=== PATIENT | male | born 1970 | race Caucasian/White ===

== ENCOUNTER 2024-04-03 20:05 | Emergency (ER) | payer MEDICAID ==
[2024-04-03] MEDS ORDERED: Eye-Stream Solution ONE (20:22)
[2024-04-03] MEDS ORDERED: Fluor-I-Strip/Ful-Flo OP ONE (20:22)
[2024-04-03] MEDS ORDERED: TETRACAINE 0.5% STERI-UNIT SOL OP ONE (20:22)
[2024-04-03] MEDS: Fluor-I-Strip/Ful-Flo OP ONE (20:32)
[2024-04-03] MEDS: Eye-Stream Solution OP ONE (20:32)
[2024-04-03] MEDS: TETRACAINE 0.5% STERI-UNIT SOL OP STA (20:32)
[2024-04-03 20:40] VITALS: RESP 20; TEMP 98.3; O2SAT 99
--- NOTE | 2024-04-03 20:52 | ERPHSYRPT ---
- History of Present Illness Time Seen by Provider: 04/03/24 20:17 Source: patient Exam Limitations: no limitations Patient Subjective Stated Complaint: pt states that he was weed eating and a rock hit his eye Triage Nursing Assessment: pt ambulated into the er; pt is axo x4; c/o left eye injury; pt states 1/10 pain to left eye; redness present to left outer sclera; no discharge present; skin PDW; no respiratory distress present; tachycardic Physician History: 53-year-old presented in the ER after a rock flew into his left eye while lawnmowing almost an hour prior to arrival. Patient reports dull aching sensation 1/10 to the lateral side of the eye with some redness. Has baseline difficulty vision without glasses and is not any worse than usual. Denies any watering of eye. Denies any foreign body sensation. Unsure about tetanus status. Denies photophobia. Allergies/Adverse Reactions: No Known Drug Allergies Allergy (Unverified 04/03/24 20:12) Home Medications: No Reportable Medications [No Reported Medications] 04/03/24 [History] Hx Tetanus, Diphtheria Vaccination/Date Given: No Hx Influenza Vaccination/Date Given: No Hx Pneumococcal Vaccination/Date Given: No Travel Risk - International Travel Have you traveled outside of the country in past 3 weeks: No - Emerging Infectious Disease Are you exhibiting symptoms associated with any current EIDs: No - Review of Systems Constitutional: No Symptoms Eyes: Eye Pain, Eye Redness Ears, Nose, & Throat: No Symptoms Respiratory: No Symptoms Cardiac: No Symptoms Musculoskeletal: No Symptoms Skin: No Symptoms Neurological: No Symptoms Hematologic/Lymphatic: No Symptoms - Past Medical History Pertinent Past Medical History: Yes History: Renal Disease - Past Surgical History Past Surgical History: No - Social History Smoking Status: Current every day smoker Exposure to second hand smoke: Yes Drug Use: marijuana - Social Determinants of Health Will the patient participate in the screening: Yes Do you worry about a steady place to live?: No Do you have any problems with any of the following?: No known problems In the past 12 months,have you had to go without utilities?: No Transportation Issues: No Has anyone in your support network made you feel unsafe?: No Have you or anyone in your house had to go without enough: No - Nursing Vital Signs Nursing Vital Signs: Initial Vital Signs Temperature 98.3 F 04/03/24 20:13 Pulse Rate 109 H 04/03/24 20:13 Respiratory Rate 20 04/03/24 20:13 Blood Pressure 129/95 04/03/24 20:13 O2 Sat by Pulse Oximetry 99 04/03/24 20:13 Pain Scale Pain Intensity 1 - Physical Exam General Appearance: no apparent distress, alert Vision Acuity Degree Evaluation Phase: Uncorrected Vision Acuity Right Eye: 20/70 Vision Acuity Left Eye: 20/70 Eye Exam: right eye: normal inspection, PERRL, EOMI, abnormal EOM, left eye: conjunctival hemorrhage, conjunctival inflammation Ears, Nose, Throat Exam: normal ENT inspection, TMs normal, pharynx normal, moist mucous membranes Neck Exam: normal inspection, non-tender, supple, full range of motion Respiratory Exam: normal breath sounds, lungs clear Cardiovascular Exam: regular rate/rhythm, normal heart sounds Neurologic: alert, cooperative, detacher II-XII nml as tested Skin Exam: normal color SpO2 Interpretation: normal SpO2: 99 O2 Delivery: Room Air Ordered Tests: Medication Summary Generic Name Dose Route Start Last Admin Trade Name Freq PRN Reason Stop Dose Admin Ofloxacin 5 ml 04/03/24 20:45 Ofloxacin 0.3% Opth 5 Ml Eye Drops OP 05/03/24 20:44 Q6H MARINA Discontinued Medications Generic Name Dose Route Start Last Admin Trade Name Freq PRN Reason Stop Dose Admin Diphtheria/Tetanus/Acell Pertussis 0.5 ml 04/03/24 20:52 Tdap --Diph,Pertuss(Acell),Tet Vac/Pf 0.5 Ml Vial IM 04/03/24 20:53 .ONCE ONE Eye Irrigation Solution Confirm 04/03/24 20:22 Sodium/Potassium/Nick/Magnesium 30 Ml Eye Wash Administered 04/03/24 20:23 Dose 30 ml .ROUTE .STK-MED ONE Eye Irrigation Solution 15 ml 04/03/24 20:30 04/03/24 20:32 Sodium/Potassium/Nick/Magnesium 30 Ml Eye Wash OP 04/03/24 20:31 15 ml STAT ONE Administration Fluorescein Sodium Confirm 04/03/24 20:22 Fluorescein Sodium 1 Mg/Strip Strip Administered 04/03/24 20:23 Dose 1 mg OP .STK-MED ONE Fluorescein Sodium 1 mg 04/03/24 20:30 04/03/24 20:32 Fluorescein Sodium 1 Mg/Strip Strip OP 04/03/24 20:31 1 mg STAT ONE Administration Tetracaine HCl Confirm 04/03/24 20:22 Tetracaine Hcl/Pf 4 Ml Bottle Administered 04/03/24 20:23 Dose 4 ml OP .STK-MED ONE Tetracaine HCl 4 ml 04/03/24 20:30 04/03/24 20:32 Tetracaine Hcl/Pf 4 Ml Bottle OP 04/03/24 20:31 4 ml STAT STA Administration - Progress Progress: improved Progress Note: 04/03/24 20:55 53-year-old is evaluated for left eye injury with small piece of rock while doing lawnmowing. No visual disturbance than usual. I did not see any foreign body. I have given him tetracaine drops, everted the lids with no foreign body. No obvious corneal abrasion noticed with fluorescein stain and Gallardo lamp exam. Has subconjunctival hemorrhage on the lateral side. Intact range of motion. Started on ofloxacin eyedrops and outpatient ophthalmology follow-up recommended. Tetanus is updated. Counseled pt/family regarding: diagnosis, need for follow-up Medical Desision Making - Independent Historian Additional History obtained from: Spouse - Diagnostic Testing Diagnostic test were ordered, analyzed, and reviewed by me: No - Risk of complications The pt has a mod risk of morbidity or mortality based on: Need for prescription drug management - Departure Departure Disposition: Home Clinical Impression: Subconjunctival hemorrhage, Superficial injury of eyeball Condition: Stable Critical Care Time: No Referrals: DOCTOR,NO FAMILY [Primary Care Provider] - Follow up/PCP as directed Additional Instructions: Follow-up with ophthalmology/optometry for reevaluation in the morning. Use eyedrops given to use 1 to 2 drops every 6 hours for next 5 to 7 days. Return to ER for worsening of vision, redness, difficulty movements of eyeball/pain etc. Call for appointment [facility] [address] [id number]
[2024-04-03] MEDS ORDERED: Adacel Vial IM ONE (20:55)
[2024-04-03] MEDS ORDERED: Ocuflox OPHTHALMIC 5 ML OP ONE (20:55)
[2024-04-03] MEDS: Ocuflox OPHTHALMIC 5 ML OP SCH (20:56)
[2024-04-03] MEDS: Adacel Vial IM ONE (20:58)
[2024-04-03 21:04] VITALS: BP 122/93; PULSE 93
== END 2024-04-03 21:04 | disposition home or self-care (01) ==
LOC: ED 20:05
DX: H11.32 Conjunctival hemorrhage, left eye (principal); S05.8X2A Other injuries of left eye and orbit, initial encounter; W20.8XXA Other cause of strike by thrown, projected or falling object, initial encounter; Y93.H2 Activity, gardening and landscaping; Z72.0 Tobacco use; Z23 Encounter for immunization
CPT/HCPCS: 90471; 90715; 99282; A9270-GY

== ENCOUNTER 2024-11-09 16:01 | Emergency (ER) | payer MEDICAID | END 2024-11-09 16:54 | disposition left against medical advice (07) | LOC: ED 16:01 | DX: Z53.21 Procedure and treatment not carried out due to patient leaving prior to being seen by health care provider (principal) | CPT/HCPCS: 99281 ==